=== PATIENT | male | born 1970 | race African-American/Black ===

== ENCOUNTER 2023-09-23 03:03 | Emergency (ER) | payer OTHER ==
[~2023-09-23] VITALS: Ht 170.1 cm; Wt 106.6 kg
[2023-09-23] MEDS ORDERED: Ondansetron Hydrochloride 4 MG/2 ML VIAL IV ONE (03:25)
[2023-09-23] MEDS ORDERED: SODIUM CHLORIDE 0.9% 1,000 ML IV ONE (03:25)
[2023-09-23 04:13] LABS: ALKALINE PHOSPHATASE 74 U/L (46-116); BUN 7 mg/dl (9-23); CHLORIDE 113 mmol/L (98-107); ETHYL ALCOHOL 185.4 mg/dl (<3); LIPASE 29 U/L (12-53); POTASSIUM 3.4 mmol/L (3.4-5.1); SGPT/ALT 10 U/L (5-49); TOTAL PROTEIN 7.9 gm/dL (6.0-8.0)
[2023-09-23 04:32] LABS: BILIRUBIN Negative (Negative); BLOOD Negative (Negative); CLARITY Clear (Clear); COLOR Yellow (Yellow); GLUCOSE Negative (Negative); KETONE Negative (Negative); LEUKO ESTERASE Negative (Negative); NITRITE Negative (Negative); SPECIFIC GRAVITY <= 1.005 (1.001-1.030); UROBILINOGEN 0.2 E.U./dl (0.0-1.0)
[2023-09-23 04:39] LABS: URINE AMPHETAMINES Negative (1000ng/ml); URINE BARBITURATES Negative (200ng/ml); URINE BENZODIAZEPINES Negative (200ng/ml); URINE CANNABINOIDS (THC) Positive (50ng/ml); URINE COCAINE Negative (300ng/ml); URINE METHADONE Negative (300ng/ml); URINE OPIATES Negative (300ng/ml); URINE PHENCYCLIDINE Negative (25ng/ml)
[2023-09-23 04:50] LABS: WBC 0-2 wbc/hpf (0-5)
[2023-09-23 06:05] LABS: HEMATOCRIT 33.8 % (42.0-52.0); MEAN CELL VOLUME 94.2 fl (80.0-94.0); MEAN CORPUSCULAR HGB 32.3 pg (27.0-31.0); MEAN CORPUSCULAR HGB CONC 34.3 g/dl (33.0-37.0); MEAN PLATELET VOLUME 13.7 fl (9.6-12.3); NUCLEATED RED BLOOD CELL 0.5 % (0.0-0.0); PLATELET COUNT AUTOMATED 163 10*3/uL (130-400); RED BLOOD COUNT 3.59 10*6/uL (4.50-5.90); RED CELL DISTRI WIDTH 12.1 % (0-14.5); WHITE BLOOD COUNT 4.4 10*3/uL (4.8-10.8)
[2023-09-23 07:01] LABS: MANUAL DIFF REFLEX YES
[2023-09-23 07:03] LABS: PLATELET SUFFICIENCY NORMAL (NORMAL); TOTAL CELLS COUNTED 100 #CELLS
[2023-09-23] MEDS ORDERED: CIPRO500 MG PO (07:25)
[2023-09-23] MEDS ORDERED: FLOMAX0.4 MG PO (07:25)
== END 2023-09-23 08:30 | disposition home or self-care (01) ==
LOC: ED 03:03
PROVIDERS: Internal Medicine
DX: R33.9 Retention of urine, unspecified (principal)

== ENCOUNTER 2023-09-24 22:07 | Emergency (ER) | payer OTHER ==
[~2023-09-24] VITALS: Ht 170.1 cm; Wt 92.1 kg
[~2023-09-24 22:07] MED LIST: CIPRO500 MG PO; FLOMAX0.4 MG PO
== END 2023-09-24 23:04 | disposition home or self-care (01) ==
LOC: ED 22:07
DX: T83.091A Other mechanical complication of indwelling urethral catheter, initial encounter (principal); R10.9 Unspecified abdominal pain; Y84.6 Urinary catheterization as the cause of abnormal reaction of the patient, or of later complication, without mention of misadventure at the time of the procedure; Y92.89 Other specified places as the place of occurrence of the external cause

== ENCOUNTER 2023-10-15 21:47 | Emergency (ER) | payer OTHER ==
[~2023-10-15] VITALS: Ht 152.4 cm; Wt 93.0 kg
== END 2023-10-15 23:21 ==
LOC: ED 21:47
DX: S61.011A Laceration without foreign body of right thumb without damage to nail, initial encounter (principal); Z53.29 Procedure and treatment not carried out because of patient's decision for other reasons; W26.0XXA Contact with knife, initial encounter; Y93.89 Activity, other specified; Y92.89 Other specified places as the place of occurrence of the external cause; Y99.8 Other external cause status

== ENCOUNTER 2024-01-26 03:14 | Emergency (ER) | payer OTHER ==
[~2024-01-26] VITALS: Ht 170.1 cm; Wt 91.6 kg
[2024-01-26 04:30] LABS: BASO % 0.7 % (0.0-1.0); EOS # 0.2 10*3/uL (0.0-0.4); EOS % 4.2 % (1.0-4.0); HEMATOCRIT 36.5 % (42.0-52.0); LYMPH # 0.7 10*3/uL (1.3-4.4); LYMPH % 12.9 % (27.0-41.0); MEAN CORPUSCULAR HGB 32.9 pg (27.0-31.0); MEAN CORPUSCULAR HGB CONC 32.9 g/dl (33.0-37.0); MONO # 0.5 10*3/uL (0.1-1.0); MONO % 9.4 % (3.0-9.0); NEUT # 4.1 10*3/uL (2.3-7.9); NEUT % 72.5 % (47.0-73.0); PLATELET COUNT AUTOMATED 149 10*3/uL (130-400); RED BLOOD COUNT 3.65 10*6/uL (4.50-5.90); RED CELL DISTRI WIDTH 12.1 % (0-14.5); WHITE BLOOD COUNT 5.7 10*3/uL (4.8-10.8)
[2024-01-26 04:52] LABS: ALKALINE PHOSPHATASE 88 U/L (46-116); BUN 17 mg/dl (9-23); CHLORIDE 106 mmol/L (98-107); POTASSIUM 3.7 mmol/L (3.4-5.1); SGPT/ALT 21 U/L (5-49); TOTAL PROTEIN 7.6 gm/dL (6.0-8.0)
== END 2024-01-26 04:39 | disposition left against medical advice (07) ==
LOC: ED 03:14
PROVIDERS: Internal Medicine
DX: L29.9 Pruritus, unspecified (principal); Z53.29 Procedure and treatment not carried out because of patient's decision for other reasons

== ENCOUNTER 2024-05-16 21:50 | Emergency (ER) | payer OTHER ==
[~2024-05-16] VITALS: Ht 170.1 cm; Wt 93.4 kg
[2024-05-16] MEDS ORDERED: PROTONIX40 MG PO (22:12)
[2024-05-16] MEDS ORDERED: BIKTARVY PO (22:14)
[2024-05-16 22:59] LABS: BASO % 0.6 % (0.0-1.0); EOS # 0.2 10*3/uL (0.0-0.4); EOS % 3.2 % (1.0-4.0); HEMATOCRIT 36.6 % (42.0-52.0); MEAN CELL VOLUME 98.9 fl (80.0-94.0); MEAN CORPUSCULAR HGB 33.2 pg (27.0-31.0); MEAN CORPUSCULAR HGB CONC 33.6 g/dl (33.0-37.0); MEAN PLATELET VOLUME 12.2 fl (9.6-12.3); MONO # 0.4 10*3/uL (0.1-1.0); NEUT # 3.6 10*3/uL (2.3-7.9); NEUT % 72.4 % (47.0-73.0); PLATELET COUNT AUTOMATED 168 10*3/uL (130-400); RED CELL DISTRI WIDTH 11.7 % (0-14.5)
[2024-05-16 23:15] LABS: BUN 14 mg/dl (9-23); CHLORIDE 108 mmol/L (98-107); POTASSIUM 3.8 mmol/L (3.4-5.1)
[2024-05-17] MEDS ORDERED: Ondansetron4 MG PO (00:19)
[2024-05-17] MEDS ORDERED: SEPTDS PO (00:19)
[2024-05-17] MEDS ORDERED: Ondansetron Hydrochloride 4 MG TAB SL ONE (00:20)
[2024-05-17] MEDS ORDERED: Sulfamethoxazole/Trimethopri 1 TAB TAB PO ONE (00:20)
== END 2024-05-17 00:40 | disposition home or self-care (01) ==
LOC: ED 21:50
PROVIDERS: Internal Medicine
DX: S91.302A Unspecified open wound, left foot, initial encounter (principal); S91.301A Unspecified open wound, right foot, initial encounter; R11.0 Nausea; L03.116 Cellulitis of left lower limb; L03.115 Cellulitis of right lower limb; X58.XXXA Exposure to other specified factors, initial encounter; Y93.89 Activity, other specified; Y92.009 Unspecified place in unspecified non-institutional (private) residence as the place of occurrence of the external cause; Y99.8 Other external cause status

== ENCOUNTER 2024-05-19 18:48 | Observation (INO) | payer OTHER ==
[~2024-05-19] VITALS: Ht 170.1 cm; Wt 91.2 kg
[~2024-05-19 18:48] MED LIST changes: +BIKTARVY PO; +Ondansetron4 MG PO; +PROTONIX40 MG PO; +SEPTDS PO
[2024-05-19 19:01] VITALS: BP 150/66
[2024-05-19] MEDS ORDERED: EPINEPHrine IN 0.9 % SOD CHLOR 250 ML IV ONE (20:15)
[2024-05-19] MEDS ORDERED: SODIUM CHLORIDE 0.9% 1,000 ML IV ONE (20:15)
[2024-05-19 20:20] LABS: BASO % 0.5 % (0.0-1.0); EOS # 0.2 10*3/uL (0.0-0.4); EOS % 4.1 % (1.0-4.0); HEMATOCRIT 36.8 % (42.0-52.0); MEAN CELL VOLUME 101.1 fl (80.0-94.0); MEAN CORPUSCULAR HGB CONC 32.6 g/dl (33.0-37.0); MEAN PLATELET VOLUME 12.3 fl (9.6-12.3); MONO # 0.3 10*3/uL (0.1-1.0); NEUT # 2.9 10*3/uL (2.3-7.9); NEUT % 70.2 % (47.0-73.0); PLATELET COUNT AUTOMATED 158 10*3/uL (130-400); RED BLOOD COUNT 3.64 10*6/uL (4.50-5.90); RED CELL DISTRI WIDTH 11.8 % (0-14.5); WHITE BLOOD COUNT 4.1 10*3/uL (4.8-10.8)
[2024-05-19 20:42] LABS: ALKALINE PHOSPHATASE 82 U/L (46-116); BUN 10 mg/dl (9-23); CHLORIDE 107 mmol/L (98-107); POTASSIUM 3.8 mmol/L (3.4-5.1); SGPT/ALT 14 U/L (5-49); TOTAL PROTEIN 7.9 gm/dL (6.0-8.0)
[2024-05-19 20:46] VITALS: BP 147/74
[2024-05-20] MEDS ORDERED: OMEPRAZOLE40 MG PO (00:12)
[2024-05-20] MEDS ORDERED: PREGABALIN100 MG PO (00:13)
[2024-05-20] MEDS ORDERED: AMLODIPINE BESYL5 MG PO (00:14)
[2024-05-20] MEDS ORDERED: NICORETTE2 MG PO (00:14)
[2024-05-20] MEDS ORDERED: VITAMIN C500 M4 PO (00:14)
[2024-05-20] MEDS ORDERED: Ondansetron Hydrochloride 4 MG/2 ML VIAL IV PRN (00:15)
[2024-05-20] MEDS ORDERED: ACETAMINOPHEN 650 MG SUPP R PRN (00:15)
[2024-05-20] MEDS ORDERED: TEMAZEPAM 15 MG CAP PO PRN (00:15)
[2024-05-20] MEDS ORDERED: NAPROXEN500 MG PO (00:15)
[2024-05-20] MEDS ORDERED: Acetaminophen/Hydrocodone 5 MG/325 MG TABLET PO PRN (00:15)
[2024-05-20] MEDS ORDERED: FLUOXETINE HYDR20 M1 PO (00:15)
[2024-05-20] MEDS ORDERED: BISACODYL 10 MG SUPP R PRN (00:15)
[2024-05-20] MEDS ORDERED: MORPHINE Sulfate 2 MG/ML SYR IV PRN (00:15)
[2024-05-20] MEDS ORDERED: BISACODYL 5 MG TAB PO PRN (00:15)
[2024-05-20] MEDS ORDERED: ACETAMINOPHEN 325 MG TAB PO PRN (00:15)
[2024-05-20] MEDS ORDERED: Magnesium Hydroxide 30 ML UDC PO PRN (00:15)
[2024-05-20] MEDS ORDERED: AIRSUPRA 90-810.7 GM INH (00:17)
[2024-05-20] MEDS ORDERED: QUETIAPINE FUM100 M3 PO (00:18)
[2024-05-20] MEDS ORDERED: MG-AL HYDROXIDE/SIMETICONE 30 ML UDC PO STA (00:33)
[2024-05-20] MEDS ORDERED: Dicyclomine Hydrochloride 20 MG/10 ML OSYR PO STA (00:33)
[2024-05-20] MEDS ORDERED: Lidocaine Hydrochloride 15 ML UDC PO STA (00:33)
[2024-05-20] MEDS ORDERED: ASPIRIN 325 MG TAB PO ONE (00:35)
[2024-05-20] MEDS ORDERED: Pantoprazole Sodium 40 MG TAB PO SCH (06:00)
[2024-05-20] MEDS ORDERED: Regadenoson 0.4 MG/5 ML SYR IV ONE (06:19)
[2024-05-20 06:55] LABS: HEMATOCRIT 34.4 % (42.0-52.0); MEAN CORPUSCULAR HGB 33.6 pg (27.0-31.0); MEAN CORPUSCULAR HGB CONC 34.3 g/dl (33.0-37.0); MEAN PLATELET VOLUME 13.2 fl (9.6-12.3); PLATELET COUNT AUTOMATED 155 10*3/uL (130-400); RED BLOOD COUNT 3.51 10*6/uL (4.50-5.90); RED CELL DISTRI WIDTH 11.8 % (0-14.5); WHITE BLOOD COUNT 4.1 10*3/uL (4.8-10.8)
[2024-05-20 07:03] LABS: BUN 10 mg/dl (9-23); CHLORIDE 108 mmol/L (98-107); CHOLESTEROL 161 mg/dL (<200); FREE T4 1.13 ng/dl (0.89-1.76); LDL CHOLESTEROL 107 mg/dL (9-159); POTASSIUM 3.7 mmol/L (3.4-5.1); TRIGLYCERIDES 100 mg/dl (<150); VITAMIN D, 25-HYDROXY 32.9 ng/mL (30-100)
[2024-05-20 07:04] LABS: MANUAL DIFF REFLEX YES
[2024-05-20] MEDS ORDERED: Technetium Tc 99M Tetrofosmi 0.23 MG KIT IJ SCH (07:20)
[2024-05-20 08:14] LABS: OVALOCYTES FEW; PLATELET SUFFICIENCY NORMAL (NORMAL); POLYCHROMASIA SLIGHT; TOTAL CELLS COUNTED 100 #CELLS
[2024-05-20] MEDS ORDERED: QUEtiapine FUMARATE 100 MG TAB PO SCH (10:00)
[2024-05-20] MEDS ORDERED: Enoxaparin Sodium 40 MG/0.4 ML SYR SC SCH (10:00)
[2024-05-20] MEDS ORDERED: Sulfamethoxazole/Trimethopri 1 TAB TAB PO SCH (10:00)
[2024-05-20] MEDS ORDERED: PREGABALIN 50 MG CAP PO SCH (10:00)
[2024-05-20] MEDS ORDERED: FLUoxetine Hydrochloride 20 MG CAP PO SCH (10:00)
[2024-05-20] MEDS ORDERED: ATORVASTATIN CALCIUM 40 MG TABLET PO SCH (10:00)
[2024-05-20] MEDS ORDERED: amLODIPine besylate 5 MG TAB PO SCH (10:00)
[2024-05-20] MEDS ORDERED: BIKTARVY PO SCH (10:00)
[2024-05-20] MEDS ORDERED: Metoprolol Tartrate 25 MG TAB PO SCH (10:00)
[2024-05-20 12:00] VITALS: BP 142/69
[2024-05-20] MEDS ORDERED: ATORVASTATIN CA40 M1 PO (17:37)
[2024-05-21] MEDS ORDERED: ASPIRIN ENTERIC COATED 81 MG TAB PO SCH (10:00)
== END 2024-05-20 18:24 | disposition home or self-care (01) ==
LOC: ED 18:48 → EDHOLD 23:25
PROVIDERS: Emergency Medicine; Student in an Organized Health Care Education/Training Program; ADMIT Internal Medicine; ATTEND Internal Medicine
DX: R07.89 Other chest pain (principal); F41.9 Anxiety disorder, unspecified; D72.819 Decreased white blood cell count, unspecified; D53.9 Nutritional anemia, unspecified; Z21 Asymptomatic human immunodeficiency virus [HIV] infection status; K21.9 Gastro-esophageal reflux disease without esophagitis; I10 Essential (primary) hypertension; N40.0 Benign prostatic hyperplasia without lower urinary tract symptoms; F17.210 Nicotine dependence, cigarettes, uncomplicated; Z79.899 Other long term (current) drug therapy

== ENCOUNTER 2024-10-11 12:36 | Emergency (ER) | payer OTHER ==
[~2024-10-11] VITALS: Ht 170.1 cm; Wt 93.4 kg
[~2024-10-11 12:36] MED LIST changes: +AIRSUPRA 90-810.7 GM INH; +AMLODIPINE BESYL5 MG PO; +ATORVASTATIN CA40 M1 PO; +FLUOXETINE HYDR20 M1 PO; +NAPROXEN500 MG PO; +NICORETTE2 MG PO; +OMEPRAZOLE40 MG PO; +PREGABALIN100 MG PO; +QUETIAPINE FUM100 M3 PO; +VITAMIN C500 M4 PO
[2024-10-11 13:17] LABS: BASO # 0.0 10*3/uL (0.0-0.1); BASO % 0.6 % (0.0-1.0); EOS # 0.3 10*3/uL (0.0-0.4); EOS % 5.4 % (1.0-4.0); MEAN CELL VOLUME 97.9 fl (80.0-94.0); MEAN CORPUSCULAR HGB 31.8 pg (27.0-31.0); MEAN PLATELET VOLUME 12.2 fl (9.6-12.3); MONO # 0.4 10*3/uL (0.1-1.0); MONO % 9.1 % (3.0-9.0); NEUT # 3.4 10*3/uL (2.3-7.9); NEUT % 73.3 % (47.0-73.0); NUCLEATED RED BLOOD CELL 0.0 % (0.0-0.0); NUCLEATED RED BLOOD CELL 0.0 10*3/uL (0.0-0.0); PLATELET COUNT AUTOMATED 162 10*3/uL (130-400); RED CELL DISTRI WIDTH 11.4 % (0-14.5)
[2024-10-11 13:45] LABS: BUN 11 mg/dl (9-23); SGPT/ALT 21 U/L (5-49)
[2024-10-11] MEDS ORDERED: LEVOFLOXACIN750 M2 PO (14:37)
[2024-10-11] MEDS ORDERED: LEVOFLOXACIN 750 MG TAB PO ONE ×2 (14:40→15:10)
== END 2024-10-11 14:44 | disposition home or self-care (01) ==
LOC: ED 12:36
PROVIDERS: Nurse Practitioner Family
DX: J06.9 Acute upper respiratory infection, unspecified (principal); I10 Essential (primary) hypertension; F41.9 Anxiety disorder, unspecified; K21.9 Gastro-esophageal reflux disease without esophagitis; R51.9 Headache, unspecified; M79.602 Pain in left arm; Z20.822 Contact with and (suspected) exposure to COVID-19; Z79.899 Other long term (current) drug therapy; Z87.891 Personal history of nicotine dependence

== ENCOUNTER 2024-12-14 00:35 | Emergency (ER) | payer OTHER ==
[~2024-12-14] VITALS: Ht 170.1 cm; Wt 93.4 kg
[~2024-12-14 00:35] MED LIST changes: +LEVOFLOXACIN750 M2 PO
[2024-12-14] MEDS ORDERED: MELOXICAM15 MG PO (01:04)
[2024-12-14] MEDS ORDERED: AMOX-CLAV 875-1 EACH PO (01:04)
[2024-12-14] MEDS ORDERED: Amoxicillin/Clavulanate Pota 875 MG TAB PO ONE (01:05)
== END 2024-12-14 01:28 | disposition home or self-care (01) ==
LOC: ED 00:35
DX: K04.7 Periapical abscess without sinus (principal); K02.9 Dental caries, unspecified; F17.210 Nicotine dependence, cigarettes, uncomplicated; Z79.899 Other long term (current) drug therapy

== ENCOUNTER 2025-02-04 20:37 | Emergency (ER) | payer OTHER ==
[~2025-02-04] VITALS: Ht 170.1 cm; Wt 93.4 kg
[~2025-02-04 20:37] MED LIST changes: +AMOX-CLAV 875-1 EACH PO; +MELOXICAM15 MG PO
[2025-02-04] MEDS ORDERED: AMOXICILLIN500 M3 PO (21:59)
[2025-02-04] MEDS ORDERED: AMOXICILLIN 500 MG CAP PO ONE (22:00)
[2025-02-04] MEDS ORDERED: Acetaminophen/Oxycodone Hydr 7.5 MG/325 MG TABLET PO ONE (22:00)
== END 2025-02-04 22:19 | disposition home or self-care (01) ==
LOC: ED 20:37
DX: K02.9 Dental caries, unspecified (principal); E78.5 Hyperlipidemia, unspecified; I10 Essential (primary) hypertension; F32.A Depression, unspecified; F12.90 Cannabis use, unspecified, uncomplicated; F17.210 Nicotine dependence, cigarettes, uncomplicated; Z98.890 Other specified postprocedural states